=== PATIENT | female | born 1990 | race Caucasian/White ===

== ENCOUNTER 2024-01-11 19:20 | Inpatient (IN) | payer BC, SELFPAY ==
[2024-01-11 19:30] VITALS: BMI 33.8
[2024-01-11 19:43] VITALS: BP 110/67; PULSE 96; RESP 16; TEMP 36
[2024-01-11 20:15] LABS: Absolute Lymphocyte Count 1.66 X10^3/uL (0.83-4.51); Absolute Neutrophil Count 5.1 X10^3/uL (2.0-7.7); Basophil# 0.03 X10^3/uL; Basophil% 0.4 % (0-1); Eosinophil# 0.07 X10^3/uL; Hematocrit 34.7 % (37-47); Hemoglobin 11.8 g/dL (12.0-15.0); Lymphocyte # 1.66 X10^3/ul (0.83-4.51); Mean Corpuscular Hgb 31.8 pg (27.0-32.0); Mean Corpuscular Volume 93.5 fL (81-99); Mean Platelet Vol. 10.1 fl (6.2-12.0); Monocyte# 0.31 X10^3/uL; Monocyte% 4.3 % (0-10); NRBC Flagged by Analyzer 0 % (0-5); Neutrophil # 5.12 X10^3/uL (2.7-7.7); Platelet Count 226 K/mm3 (150-450); RBC Distribution Width CV 12.3 % (11.6-14.6); RBC Distribution Width SD 42.3 fl (35.1-43.9); Red Blood Count 3.71 M/mm3 (4.2-5.4); White Blood Count 7.2 K/mm3 (4.4-11.0)
[2024-01-11] MEDS: miSOPROStol 25 MCG TABLET VAGINAL (20:35)
[2024-01-11 20:39] VITALS: BP 105/64; PULSE 92; O2SAT 98
[2024-01-11 20:54] LABS: Syphilis Antibodies Non-reactive
--- NOTE | 2024-01-11 21:05 | PCM.HP.OB ---
HPI - General General Date of Admission: 01/11/24 HPI Narrative ELIZA VASQUES, is a 33 F at 41 weeks gestation who presents for a scheduled induction of labor. Maternal Data Information Final SERGIO: 01/04/24 [facility] Medical History (Updated 01/11/24 @ 21:07 by Mandi Astudillo CNM) Colonoscopy planned GERD (gastroesophageal reflux disease) IBS (irritable bowel syndrome) Asthma Depression Anxiety Home Medications ?Medication ?Instructions ?Recorded ?Last Taken ?Type albuterol sulfate 90 mcg/actuation 2 puff inhalation 4X/DAY PRN PRN 01/11/24 Unknown History aerosol inhaler shortness of breath or wheezing aspirin 81 mg tablet,delayed 81 mg PO DAILY 01/11/24 01/11/24 17:00 History release (Adult Low Dose Aspirin) dicyclomine 10 mg capsule 10 mg PO 4X/DAY PRN PRN IBs 01/11/24 Unknown History esomeprazole magnesium 40 mg 40 mg PO DAILY acid reflux 01/11/24 01/11/24 16:00 History capsule,delayed release famotidine 40 mg tablet 40 mg PO DAILY swelling 01/11/24 01/11/24 08:00 History fluticasone 250 mcg-salmeterol 50 1 ea inhalation BID asthma 01/11/24 01/11/24 08:00 History mcg/dose blistr powdr for inhalation hydroxyzine HCl 25 mg tablet 25 mg PO 4X/DAY PRN PRN anxiety 01/11/24 Unknown History levocetirizine 5 mg tablet 5 mg PO QPM allergy 01/11/24 01/11/24 08:00 History montelukast 10 mg tablet 10 mg PO DAILY asthma 01/11/24 Unknown History valacyclovir 500 mg tablet 500 mg PO DAILY HSV 01/11/24 01/11/24 08:00 History Allergy/AdvReac Type Severity Reaction Status Date / Time bee venom protein (honey Allergy Other Verified 01/11/24 19:51 bee) (bees) Penicillins Allergy Hives Verified 01/11/24 19:51 Surgical History History of esophagogastroduodenoscopy (EGD) NST FHR Rate Baby A Baseline: 130 Variability:: Moderate Accelerations:: 15 x 15 Decelerations:: None NST Reactive:: Yes FHR Category:: Category I Uterine Activity:: irritability ROS Eyes Eyes: Denies blurry vision, change in vision or spots in vision ENT HEENT: Denies dizziness or headache(s) Cardiovascular Cardiovascular: Denies abdominal pain, chest pain or dyspnea Respiratory/Chest Respiratory/Chest: Denies cough, dyspnea, shortness of breath at rest or shortness of breath with exertion Gastrointestinal Gastrointestinal: Denies abdominal pain, diarrhea or vomiting Genitourinary Genitourinary: Denies change in urinary stream, difficulty urinating or dysuria Musculoskeletal Musculoskeletal: Reports none Integumentary Integumentary: Denies rash Neurologic Neurologic: Denies dizziness, headache(s), memory loss or weakness Psychiatric Psychiatric: Reports none Vital Signs Vital Signs Vital Signs: 01/11/24 19:43 01/11/24 19:43 01/11/24 19:43 Temperature Temperature Source Temporal Pulse Rate 96 Respiratory Rate Blood Pressure 110/67 BP Systolic 110 BP Diastolic 67 Pulse Ox 01/11/24 19:43 01/11/24 19:43 01/11/24 20:39 Temperature 96.8 F L Temperature Source Pulse Rate Respiratory Rate 16 Blood Pressure 105/64 BP Systolic 105 BP Diastolic 64 Pulse Ox 01/11/24 20:39 01/11/24 20:39 Temperature Temperature Source Pulse Rate 92 Respiratory Rate Blood Pressure BP Systolic BP Diastolic Pulse Ox 98 Physical Exam Const alert, oriented x3 and no apparent distress General Appearance: cooperative Orientation / Consciousness: awake Exam Limitations: no limitations HEENT normocephalic Head and Scalp: normal to inspection Eyes General Eye: normal appearance of both eyes Neck full ROM and no lymphadenopathy Lymph Lymphatic: no lymphadenopathy noted Chest inspection of chest normal Resp normal respiratory effort, normal air movement and clear to auscultation bilaterally Effort and Inspection: able to speak in complete sentences and symmetric chest movement Cardio regular rate and regular rhythm GI normal to inspection, nondistended, normoactive bowel sounds Manual OB Exam: presentation cephalic, dilated 4, effaced 80 and station 0 Amniotic Fluid: clear amniotic fluid Back/Spine normal ROM Extremity full ROM and no calf tenderness Skin no rashes or lesions noted General Skin Exam: no breakdown Neuro oriented x3 and CN's II-XII intact bilaterally Psych mental status grossly normal and thought process normal Labs Labs Labs: Blood Type B POSITIVE Antibody Screen Pending Hct 34.7 % (37-47) L Hgb 11.8 g/dL (12.0-15.0) L Syphilis Total Ab Non-reactive GBS negative Assessment & Plan (1) 41 weeks gestation of : (2) Encounter for induction of labor: (3) Depression: (4) IBS (irritable bowel syndrome): (5) GERD (gastroesophageal reflux disease): (6) Asthma: (7) Anxiety: PLAN: Plan Admit to labor and delivery for induction of labor/post dates Routine labs GBS negative CE - closed Start Cytotec 25 mcg PO every 4 hours x [address] Thibodeaux notified of admission and is collaborating physician
[2024-01-11 21:26] VITALS: PULSE 79; RESP 16; TEMP 36.4; O2SAT 96
[2024-01-11 21:27] VITALS: BP 109/69; PULSE 82
[2024-01-11 22:38] VITALS: BP 117/63; PULSE 72; RESP 16; O2SAT 98
[2024-01-11] MEDS: Lactated Ringers 1,000 ML 50 ML IV (22:45)
[2024-01-11 23:32] VITALS: BP 110/57; PULSE 78; RESP 16; TEMP 36.7; O2SAT 97
[2024-01-12] VITALS (69 sets, daily range): BP systolic 97–137; BP diastolic 53–93; PULSE 69–100; RESP 14–16; TEMP 36–37.2; O2SAT 97–100
[2024-01-12] MEDS: miSOPROStol 25 MCG TABLET VAGINAL (00:47)
[2024-01-12] MEDS: Mag /Aluminum/Simeth WCH UDC 30 ML ORAL.SUSP PO (02:38)
[2024-01-12] MEDS: Lactated Ringers 1,000 ML 999 ML IV (04:45)
[2024-01-12] MEDS: Lactated Ringers 1,000 ML 50 ML IV (04:49)
[2024-01-12] MEDS: fentaNYL-bupivacaine (epidural) 100 ML BAG EPIDURAL ×3 (06:04→14:57)
[2024-01-12] MEDS: Oxytocin 15 Units/NS 250ml 15 UNITS/250 ML IV.SOLN 2 UNITS IV (06:33)
[2024-01-12] MEDS: 0.9% Normal Saline Single 100 ML IV.SOLN. INTRA-UTER (06:41)
--- NOTE | 2024-01-12 06:48 | PN.OBGYN_ITS ---
Subjective Subjective Patient seen at bedside. Comfortable with epidural. Objective Data Objective Data Vital Signs: Vital Signs Temp Pulse Resp BP Pulse Ox 97.4 F L 87 16 104/60 100 01/12/24 05:29 01/12/24 06:35 01/12/24 06:24 01/12/24 06:28 01/12/24 06:35 Weight: 179 lb 3.773 oz Body Mass Index (BMI) 33.8 Intake & Output: Intake and Output for Last 24 Hours 01/10/24 01/11/24 01/12/24 23:59 23:59 23:59 Intake Total 42.5 / 42.5 2359.16 / 2359.16 Output Total 600 / 600 Balance 42.5 / 42.5 1759.16 / 1759.16 Lab / Micro Data 01/11/24 19:55 Labs: Laboratory Results - last 24 hr 01/11/24 19:55: WBC 7.2, RBC 3.71 L, Hgb 11.8 L, Hct 34.7 L, MCV 93.5, MCH 31.8, MCHC 34.0, RDW Std Deviation 42.3, RDW Coeff of [place] 12.3, Plt Count 226, MPV 10.1, Immature Gran % (Auto) 0.300, Neut % (Auto) 71.0 H, Lymph % (Auto) 23.0, [place] % (Auto) 4.3, Eos % (Auto) 1.0, Baso % (Auto) 0.4, Absolute Neuts (auto) 5.1, Absolute Lymphs (auto) 1.66, Nucleated RBC % 0, Syphilis Total Ab Non- reactive, Blood Type B POSITIVE, Antibody Screen NEGATIVE ROS Eyes Eyes: Denies blurry vision Cardiovascular Cardiovascular: Reports none; Denies chest pain at rest, chest pain with activity or dizziness Respiratory/Chest Respiratory/Chest: Denies cough or dyspnea Gastrointestinal Gastrointestinal: Reports none and other; Denies diarrhea or vomiting Genitourinary Genitourinary: Denies dysuria Musculoskeletal Musculoskeletal: Reports none Integumentary Integumentary: Reports none; Denies rash Neurologic Neurologic: Denies dizziness, headache(s) or other visual disturbances Psychiatric Psychiatric: Reports none Physical Exam Const alert and no apparent distress General Appearance: cooperative Orientation / Consciousness: awake Exam Limitations: no limitations HEENT normocephalic Eyes General Eye: normal appearance of both eyes Neck full ROM Chest inspection of chest normal Resp normal respiratory effort and normal air movement Effort and Inspection: symmetric chest movement Auscultation: clear to auscultation bilaterally Cardio regular rate GI soft to palpation, non-tender and non-distended Inspection: and other Extremity normal capillary refill and no calf tenderness Skin no rashes or lesions noted Neuro oriented x3 and CN's II-XII intact bilaterally Psych mental status grossly normal NST FHR Rate Baby A Baseline: 140 Variability:: Moderate Accelerations:: 15 x 15 Decelerations:: None NST Reactive:: Yes FHR Category:: Category I Uterine Activity:: 1-3 minutes- palpate moderate and relaxed in between Assessment & Plan (1) Encounter for induction of labor: (2) 41 weeks gestation of : (3) Depression: (4) GERD (gastroesophageal reflux disease): (5) IBS (irritable bowel syndrome): (6) Asthma: (7) Anxiety: PLAN: Plan CE /-2 Miguel bulb placed without difficulty and balloon filled with 30 cc N/S Cat. 1 tracing with sporadic, short periods of tachysystole Last dose of Cytotec was 0047 Start Pitocin IV at 2 mu/min and increase per policy when appropriate Dr. Cook updated and will be assuming management
[2024-01-12] MEDS: Lactated Ringers 1,000 ML 200 ML IV (12:18)
--- NOTE | 2024-01-12 17:18 | EX.PCM.OBRPT ---
Assessment & Plan (1) (spontaneous vaginal delivery): (2) 41 weeks gestation of : (3) Single live : (4) Second degree laceration of perineum, delivered, current hospitalization: Maternal Data Information Final SERGIO: 01/04/24 Gestational age: 41 1/7 Vaginal Delivery Maternal Presentation Maternal Presentation: Medically Indicated Induction Type of Induction: Pitocin, Miguel Bulb, Amniotomy and Cytotec Operative Information Date of Procedure: 01/12/24 Pre-Operative Diagnosis: labor Post-Operative Diagnosis: same Surgery / Procedure Performed: Spontaneous Vaginal Delivery Type of Anesthesia: Epidural Drain: Miguel to straight drain Estimated Blood Loss: 300 Time of Delivery: 16:56 Findings Description of Procedure: A vigorous female was delivered REI over a second-degree perineal laceration. The remainder the infant was delivered with maternal pushing and gentle traction only in less than 15 seconds. The Pitocin infusion was initiated for active management of the third stage. The cord was clamped and cut after cord pulsations ceased. The was attended to by the waiting nursing staff. The placenta was delivered spontaneously and intact. The cervix and vagina were intact. The second-degree perineal laceration was repaired with 3-0 Vicryl suture in a running standard fashion. Sponge and needle counts were correct. A vaginal sweep was completed by me. Presentation: REI Amniotic Membrane Rupture Type: Artificial Amniotic Fluid Description: Clear Placental Delivery Description: Spontaneous Placenta Disposition: [facility] Cord Vessel Description: 3 Vessels Cord Entanglement: None Infant A Gender: Female ([facility]) (1 minute): 8 (5 minute): 9 Post Vaginal Delivery Medications Given After Delivery: IV Pitocin Episiotomy Description: None Laceration: 2nd degree Complication Complications: None
[2024-01-12] MEDS: Oxytocin 15 Units/NS 250ml 15 UNITS/250 ML IV.SOLN 83 UNITS IV (17:39)
[2024-01-12] MEDS: Loratadine 10 MG Tablet PO (20:22)
[2024-01-12] MEDS: Ibuprofen 600 MG Tablet PO (20:26)
[2024-01-12] MEDS: Senna/Docusate Sodium 1 Tablet PO (20:26)
[2024-01-13] VITALS (8 sets, daily range): BP systolic 91–111; BP diastolic 50–68; PULSE 74–88; RESP 16; TEMP 36.1–36.5
[2024-01-13] MEDS: Ibuprofen 600 MG Tablet PO ×2 (04:59→11:14)
--- NOTE | 2024-01-13 07:16 | CPS ---
patient does not want treatments. nurse will call us if she changes her mind or needs one.,
--- NOTE | 2024-01-13 08:15 | PCM.PN.CNM ---
Subjective Subjective Patient seen at bedside. Denies any pain. Ambulating and voiding without difficulty. Hemorrhoids are bothersome- using witch gianna pads for relief. with support. Objective Data Objective Data Vital Signs: Vital Signs Temp Pulse Resp BP Pulse Ox O2 Del Method 97.3 F L 74 16 91/50 L 98 Room Air 01/13/24 04:53 01/13/24 04:54 01/13/24 04:53 01/13/24 04:54 01/12/24 19:06 01/13/24 04:53 Oxygen Delivery Method Room Air Weight: 179 lb 3.773 oz Body Mass Index (BMI) 33.8 Intake & Output: Intake and Output for Last 24 Hours 01/11/24 01/12/24 01/13/24 23:59 23:59 23:59 Intake Total 42.5 / 42.5 5393.33 / 5393.33 Output Total 3100 / 3100 Balance 42.5 / 42.5 2293.33 / 2293.33 Lab / Micro Data Attestation: I reviewed the patient's lab results. 01/11/24 19:55 ROS Eyes Eyes: Denies blurry vision, change in vision or spots in vision ENT HEENT: Denies dizziness or headache(s) Cardiovascular Cardiovascular: Denies abdominal pain, chest pain or dyspnea Respiratory/Chest Respiratory/Chest: Denies cough, dyspnea, shortness of breath at rest or shortness of breath with exertion Gastrointestinal Gastrointestinal: Denies abdominal pain, diarrhea or vomiting Genitourinary Genitourinary: Denies change in urinary stream, difficulty urinating or dysuria Musculoskeletal Musculoskeletal: Reports none Integumentary Integumentary: Denies rash Neurologic Neurologic: Denies dizziness, headache(s), memory loss or weakness Physical Exam Const alert and no apparent distress General Appearance: cooperative and comfortable Exam Limitations: no limitations HEENT normocephalic Eyes General Eye: normal appearance of both eyes Neck full ROM General: normal visual inspection Chest Chest: symmetrical chest wall rise Resp normal respiratory effort and normal air movement Effort and Inspection: symmetric chest movement Auscultation: clear to auscultation bilaterally Cardio regular rate and regular rhythm GI normal to inspection, nondistended, normoactive bowel sounds Back/Spine normal ROM Extremity full ROM and no calf tenderness General Extremity: normal exam except as noted Skin no rashes or lesions noted Neuro oriented x3 Speech: speech normal Psych mental status grossly normal Thought Process: normal thought process Assessment & Plan (1) Second degree laceration of perineum, delivered, current hospitalization: (2) Single live : (3) (spontaneous vaginal delivery): (4) Anxiety: (5) Depression: (6) Care and examination of lactating mother: PLAN: Plan PPD 1 Routine care Pain control support Anticipate discharge home tomorrow
[2024-01-13] MEDS: Benzocaine/Lanolin/Aloe Vera 85 GM Spray 1 SPRAY TOPICAL (08:43)
[2024-01-13] MEDS: Montelukast 10 MG Tablet PO (10:10)
[2024-01-13] MEDS: Senna/Docusate Sodium 1 Tablet PO (10:10)
--- NOTE | 2024-01-13 18:29 | DS.PCM_ITS ---
Providers Date of Admission: 01/11/24 Primary Care Physician: Dr. Suhail Corea MD Reason For Visit: VAG DELIVERY Diagnosis Discharge Diagnosis (1) Second degree laceration of perineum, delivered, current hospitalization: Status: Acute Code(s): O70.1 - Second degree perineal laceration during delivery (2) Single live : Status: Acute Code(s): Z37.0 - Single live (3) (spontaneous vaginal delivery): Status: Acute Code(s): O80 - Encounter for full-term uncomplicated delivery (4) Anxiety: Status: Acute Code(s): F41.9 - Anxiety disorder, unspecified (5) Depression: Status: Acute Code(s): F32.A - Depression, unspecified (6) Care and examination of lactating mother: Status: Acute Code(s): Z39.1 - Encounter for care and examination of lactating mother Plan PPD 1 Routine care Pain control support D/C home per patient's request and follow up in office Medications at Discharge Home Medications albuterol sulfate 90 mcg/actuation aerosol inhaler 2 puff inhalation 4X/DAY PRN PRN shortness of breath or wheezing 01/11/24 dicyclomine 10 mg capsule 10 mg PO 4X/DAY PRN PRN IBs 01/11/24 esomeprazole magnesium 40 mg capsule,delayed release 40 mg PO DAILY acid reflux 01/11/24 famotidine 40 mg tablet 40 mg PO DAILY swelling 01/11/24 fluticasone 250 mcg-salmeterol 50 mcg/dose blistr powdr for inhalation 1 ea inhalation BID asthma 01/11/24 hydroxyzine HCl 25 mg tablet 25 mg PO 4X/DAY PRN PRN anxiety 01/11/24 levocetirizine 5 mg tablet 5 mg PO QPM allergy 01/11/24 montelukast 10 mg tablet 10 mg PO DAILY asthma 01/11/24 Hospital Course Operations None Procedures None Summary of Care Provided Minutes Spent on Discharge: 15 Hospital Course: Patient had vaginal delivery. Hospital course was uneventful. Physical Exam Narrative Patient seen at bedside. Denies pain. Ambulating and voiding without difficulty. Lochia decreased. Desires discharge home today. Const alert and oriented x3 General Appearance: Negative for in distress HEENT normocephalic Eyes General Eye: normal appearance of both eyes Neck General: normal visual inspection Chest Chest: symmetrical chest wall rise Resp normal respiratory effort and normal air movement Effort and Inspection: symmetric chest movement; Negative for tachypneic Auscultation: clear to auscultation bilaterally Cardio regular rate and regular rhythm Peripheral Pulses: pulses 2+ throughout GI normal to inspection, nondistended, normoactive bowel sounds Narrative: Ice to perineum OB / External & Speculum: vaginal bleeding and other Lochia decreasing Uterus Palpation: uterus fundus firm (Below U) Extremity normal to inspection, full ROM and normal capillary refill Skin no rashes or lesions noted Neuro oriented x3, CN's II-XII intact bilaterally and gait normal Psych mental status grossly normal, thought process normal and activity/motor behavior normal Weight / BMI Weight Weight: 179 lb 3.773 oz Body Mass Index (BMI) 33.8 ABG / Lab / Microbiology Data 01/11/24 19:55 D/C Instructions Discharge Diet: No restrictions Discharge Activity: Return to Normal Activity, No Restrictions, May Drive, May Shower and May Take a Tub Bath (Warm water only. No bath salts, soaps, bubbles) May resume sexual activity in: 6-8 weeks Weight Bearing Status: Weight bearing as tolerated Call your doctor if you observe: Fever of 101 or Higher, Inability to urinate, Using more than 1 pad per hour, Shortness of breath, Dizziness, Chest pain, Calf discomfort and Uncontrolled pain Please Follow Up With: [facility] Jarrod PEDERSON When: 2 weeks in office or virtual Meaningful Use Info Meaningful Use Meaningful Use Diagnoses (Choose all that apply): None applicable Ischemic Stroke Statin Dosing Therapy Reference: STATIN DOSE THERAPY REFERENCE: * Patients > 75 years receive moderate or high dose statin therapy. * Patients 75 years or YOUNGER should receive HIGH intensity statin dose unless contraindicated. You will be required to document reason for non-treatment if statin daily dose does not meet guidelines. HIGH DOSE STATIN THERAPY DAILY Atorvastatin > than or = to 40 mg Rosuvastatin > than or = to 20 mg Amlodipine + Atorvastatin > than or = to 2.5/40 mg Ezetimibe + Simvastatin 10/80 mg Simvastatin 80mg Discharge Plan Admission Admit Date/Time: 01/11/24 19:20 Primary Reason for Your Visit: Labor and Delivery Attending Provider: Rosy Cook Primary Care Provider: Suhail Corea Discharge Orders/Prescriptions Prescriptions: Continued albuterol sulfate 90 mcg/actuation HFA aerosol inhaler 2 puff inhalation 4X/DAY PRN PRN (Reason: shortness of breath or wheezing) dicyclomine 10 mg capsule 10 mg PO 4X/DAY PRN PRN (Reason: IBs) esomeprazole magnesium 40 mg capsule,delayed release(DR/EC) 40 mg PO DAILY famotidine 40 mg tablet 40 mg PO DAILY fluticasone propion-salmeterol 250-50 mcg/dose blister with device 1 ea inhalation BID hydroxyzine HCl 25 mg tablet 25 mg PO 4X/DAY PRN PRN (Reason: anxiety) levocetirizine 5 mg tablet 5 mg PO QPM montelukast 10 mg tablet 10 mg PO DAILY Discontinued valacyclovir 500 mg tablet 500 mg PO DAILY aspirin [Adult Low Dose Aspirin] 81 mg tablet,delayed release (DR/EC) 81 mg PO DAILY Referrals / Follow Up: Mandi Astudillo CNM [[facility] Staff - [facility]] - Suhail Corea MD [Primary Care Provider] - Disposition Disposition (needs filled in before D/C Order can be placed): Home, Self Care
--- NOTE | 2024-01-19 15:56 | NURSING ---
Follow up phone call made, patient is doing well and denies any questions or concerns at this time. States her bleeding is minimal, no pain, and that is going well.
== END 2024-01-13 19:00 | disposition home or self-care (01) | DRG 806 ==
PROVIDERS: Advanced Practice Midwife; Admitting Provider Obstetrics & Gynecology; PCP Family Medicine; Referring Provider Obstetrics & Gynecology; Visit Provider Obstetrics & Gynecology
DX: O48.0 Post-term pregnancy (principal); Z37.0 Single live birth; O87.2 Hemorrhoids in the puerperium; O99.344 Other mental disorders complicating childbirth; F32.A Depression, unspecified; J45.909 Unspecified asthma, uncomplicated; F41.9 Anxiety disorder, unspecified; K58.9 Irritable bowel syndrome, unspecified; K21.9 Gastro-esophageal reflux disease without esophagitis; O99.62 Diseases of the digestive system complicating childbirth; O99.52 Diseases of the respiratory system complicating childbirth; O70.1 Second degree perineal laceration during delivery; Z3A.41 41 weeks gestation of pregnancy; Z79.82 Long term (current) use of aspirin; Z79.899 Other long term (current) drug therapy
CPT/HCPCS: 59025; 59050; 85025; 86780; 86850; 86900; 86901; 99221; J7120; G0378